=== PATIENT | female | born 1955 | race Caucasian/White ===

== ENCOUNTER 2022-08-19 02:57 | Inpatient (IN) | payer MEDICARE ==
[~2022-08-19] VITALS: Ht 153 cm; Wt 39.6 kg
--- NOTE | 2022-08-19 02:05 | NUR ---
ARRIVAL TO ICU PT ARRIVED AT THIS TIME. SHE IS RECEIVING LEVOPHED 5MCG/MIN AND KETAMINE 1.5MCG/KG/HR. NEURO: PUPILS 2MM, BRISK TO RESPOND TO LIGHT. COUGH/GAG INTACT. EXTREMITIES WTIHDRAW FROM PAINFUL STIMULI. RESP: ETT 6.5/20CM AT LIP WITH VENT SETTINGS AC/VC 18/325/8/90%. LUNGS ARE CLEAR AND DIMINISHED. CARDIAC: NSR ON MONITOR WITH RATE 88-92. LEVOPHED INFUSING TO MAINTAIN MAP >65. FAINT RADIAL PULSES, DOPPLER PEDAL PULSES. 1+ EDEMA TO RLE. HANDS, ANKLES/FEET DUSKY AND COOL. MOTTLING NOTED TO BILAT KNEES. GI: ABDOMEN DISTENDED, FIRM, BOWEL TONES HYPOACTIVE. OGT CONNECTED TO LOW INT SUCTION WITH BROWN OUTPUT. : WILD PRESENT UPON ADMISSION. CHANGED WILD, YELLOW OUTPUT IN TUBING DRAINING TO GRAVITY. SKIN: OVERALL ECCYMOTIC, DRY, COOL TO TOUCH. DR ARIAS AND DR RAMSEY AT BEDSIDE. PLAN FOR CHEST XRAY.
--- NOTE | 2022-08-19 03:00 | NUR ---
UPDATE CHEST XRAY DONE. ETT ADVANCED TO 24CM BY ARTIS CHUA PER DR RAMSEY. OGT ADVANCED.
[2022-08-19 03:29] LABS: PCO2 Arterial 53.4 mmHg (35-45); PO2 Arterial 67.8 mmHg (80-100); pH Blood Arterial 7.29 (7.35-7.45)
[2022-08-19 03:49] LABS: Hemoglobin 13.7 g/dL (11.5-16.0); Mean Corpuscular HGB 34.1 pg (26.0-34.0); Mean Corpuscular HGB Conc 32.6 g/dL (31.5-36.5); Mean Corpuscular Volume 105 fL (80-100); Mean Platelet Volume 9.8 fL (9.1-12.4); Platelet Count 220 K/mm3 (150-400); RDW Coefficient Variation 12.8 % (11.7-14.2); RDW Standard Deviation 49.3 fL (35.1-46.3); Red Blood Cell Count 4.02 M/mm3 (3.80-5.20)
[2022-08-19 03:58] LABS: White Blood Cell Count 8.67 K/mm3 (4.00-11.30)
--- NOTE | 2022-08-19 04:00 | NUR ---
UPDATE LEVOPHED INFUSING AT 3MCG/MIN. KETAMINE DISCONTINUED AND VERSED INITIATED AT 2MG/HR. LR 100ML/HR.
[2022-08-19 04:06] LABS: International Normalized Ratio 1.45; Prothrombin Time Results 14.9 Sec (9.7-11.5)
[2022-08-19 04:21] LABS: Magnesium, Blood 1.8 mg/dL (1.6-2.4); Phosphorus, Blood 3.3 mg/dL (2.5-4.9)
[2022-08-19 04:54] LABS: Source, Urine Foley catheter
[2022-08-19 05:03] LABS: Albumin, Blood 2.2 g/dL (3.4-5.0); Albumin/Globulin Ratio 0.8 (0.8-1.8); Bilirubin, Total 0.7 mg/dL (0.1-1.0); Bun/Creatinine Ratio 38.9 (12.0-20.0); Calcium, Blood 6.7 mg/dL (8.5-10.1); Creatinine, Blood 0.95 mg/dL (0.40-1.00); Globulin, Blood 2.8 g/dL (2.2-4.0); Potassium, Blood 4.8 mmol/L (3.5-5.5)
[2022-08-19 05:32] LABS: BAND PERCENT MAN 7 % (0-8); BASOPHILS PERCENT MAN 0 % (0-2); EOSINOPHILS PERCENT MAN 0 % (0-6); LYMPHOCYTES ABSOLUTE MAN 0.34 K/mm3 (0.84-5.20); LYMPHOCYTES PERCENT MAN 4 % (21-46); MONOCYTES ABSOLUTE MAN 0.17 K/mm3 (0.16-1.47); MONOCYTES PERCENT MAN 2 % (4-13); NEUTROPHILS ABSOLUTE MAN 8.14 K/mm3 (1.96-9.15); SEG NEUTROPHILS PERCENT MAN 87 % (41-73); TOTAL CELLS COUNTED 100
[2022-08-19 05:43] LABS: Blood, Urine 4+ (Neg); Glucose Qualitative, Urine Neg (Neg); Ketones, Urine Neg (Neg); Leukocyte Esterase, Urine 1+ (Neg); Nitrite, Urine Neg (Neg); Protein, Urine 3+ (Neg); Urobilinogen, Urine 2+ (Normal)
[2022-08-19 05:50] LABS: Bilirubin, Urine 1+ (Neg)
[2022-08-19 05:51] LABS: Appearance, Urine Hazy (Clear); Color, Urine Yellow (P-Yellow)
[2022-08-19 06:09] LABS: U Amphetamine Screen Not Detected; U Barbituate Screen Not Detected; U Benzodiazapine Screen Not Detected; U Buprenorphine Screen Not Detected; U Cannabinoids Screen Not Detected; U Cocaine Screen Not Detected; U Methadone Screen Not Detected; U Methamphetamine Screen Not Detected; U Opiates Screen Not Detected; U Oxycodone Screen DETECTED; U Phencyclidine Screen Not Detected; U Propoxyphene Screen Not Detected
--- NOTE | 2022-08-19 06:30 | NUR ---
SHIFT SUMMARY PT REMAINS INTUBATED WITH VENT SETTINGS AC/VC 15/325/8/90%. SHE IS RECEIVING LEVOPHED 6MCG/MIN, VERSED 1MG/HR, AND LR 100ML/HR. COUGH/GAG INTACT. RESPONSIVE TO PAINFUL STIMULI. OCCASIONAL NYSTAGMUS AND UPWARD GAZE. LUNGS ARE CLEAR AND DIMINISHED. SINUS RHTYHM ON MONITOR WITH RATE IN 80S-90S. FAINT RADIAL PULSES, DOPPLER PEDAL PULSES. OGT TO LOW INT SUCTION WITH MINIMAL BROWN OUTPUT. ABDOMEN DISTENDED, FIRM. BOWEL TONES HYPOACTIVE. WILD PATENT AND DRAINING TO GRAVITY WTIH OUTPUT 150ML YELLOW URINE. SKIN OVERALL FRAGILE, DRY AND COOL. REDDENED AREA/ABRASION ON SPINE. PHOTO IN CHART. TEMP 97.7. FINGERS DUSKY, ANKLES AND FEET PURPLE/BLUE AND COOL. BLOOD GLUCOSE 48, GIVEN D50 AND GLUCOSE INCREASED TO 86.
[2022-08-19 06:59] LABS: Adenovirus Not Detected (NOT DETECT); Coronavirus 229E Not Detected (NOT DETECT)
[2022-08-19 07:00] LABS: Bordetella pertussis Not Detected (NOT DETECT); Chlamydophila pneumoniae Not Detected (NOT DETECT); Coronavirus HKU1 Not Detected (NOT DETECT); Coronavirus NL63 Not Detected (NOT DETECT); Coronavirus OC43 Not Detected (NOT DETECT); Human Metapneumovirus Not Detected (NOT DETECT); Human Rhinovirus/Enterovirus Not Detected (NOT DETECT); Influenza A/2009-H1 Not Detected (NOT DETECT); Influenza A/H1 Not Detected (NOT DETECT); Influenza A/H3 Not Detected (NOT DETECT); Influenza B Not Detected (NOT DETECT); Mycoplasma pneumoniae Not Detected (NOT DETECT); Parainfluenza Virus 1 Not Detected (NOT DETECT); Parainfluenza Virus 2 Not Detected (NOT DETECT); Parainfluenza Virus 3 Not Detected (NOT DETECT); Parainfluenza Virus 4 Not Detected (NOT DETECT); Respiratory Syncytial Virus Not Detected (NOT DETECT); SARS-Cov-2 (COVID-19), BioFire Not Detected (NOT DETECT)
--- NOTE | 2022-08-19 08:00 | NUR ---
PT UNRESPONSIVE. VERSED DRIP @ 1MG/HR OFF X 30 MINUTES AND NO CHANGE IN RESPONSIVENESS. PUPILS ARE 1MM AND FIXED. MINIMAL GRIMACE TO PAINFUL STIMULI, BUT NO MOVEMENT OF EXTREMITIES. NO GAG, COUGH, OR CORNEAL REFLEX NOTED. ECG SHOWS SR WITH RATE 80'S. MAP TRENDING >65 ON LEVOPHED @ 4 MCG/MIN. JVD NOTED. EXTREMITIES ARE COOL AND MOTTLED. LOWER EXTREMITIES MOTTLED FROM THE KNEES DOWN. BOTH FEET ARE PURPLE AND PULSES ABSENT EVEN PER DOPPLER. ECHO ORDERED THIS AM. LUNGS DIMINISHED IN THE BASES. SATS 100% ON FIO2 90%-FIO2 DECREASED TO 60%. VENT: AC/VC 15, TV 325, PEEP 8. MODERATE AMOUNT OF CLEAR ETT SECRETIONS. OGT WITH COFFEE GROUND LIKE DRAINAGE. LOVENOX HELD. ABDOMEN IS DISTENDED AND FIRM WITH HYPOACTIVE BT'S X 4. SKIN APPEARS SLIGHTLY JAUNDICED OVERALL. COCCYX SLIGHTLY RED, BUT BLANCHES. NO NOTED BREAKDOWN. PT BACK WITH KYPHOSIS AND A 12+ INCH SCAR TO HER BACK NOTED. WILD TO BSD WITH SMALL AMOUNT OF MARIS URINE TO UROMETER. ANTICIPATE PICC LINE PLACEMENT LATER TODAY IF UNABLE TO TITRATE LEVOPHED OFF. LEVOPHED CURRENTLY INFUSING VIA RIGHT UPPER ARM # 18 GUAGE IV. NO SIGNS OF INFILTRATION. ANTICIPATE POSSIBLE CT OF HEAD LATER TODAY WELL.
[2022-08-19 08:07] LABS: CPK Creatine Kinase 163 U/L (26-193); Glucose, Blood 130 mg/dL (70-99)
--- NOTE | 2022-08-19 09:00 | NUR ---
MAP TRENDING LESS THAN 65-LEVOPHED TITRATED UP TO 5 MCG/MIN. PT TERRY WATTERS UPDATED TO CURRENT STATUS AND PLAN OF CARE. CONSENT FOR PICC LINE PLACEMENT OBTAINED.
--- NOTE | 2022-08-19 10:00 | NUR ---
DR. KIRKPATRICK HERE TO SEE PT. FULL UPDATE GIVEN. PEEP DECREASED TO 5 AND FIO2 DOWN TO 40% SATS >90% PUPILS REMAIN PINPOINT. VERSED DRIP OFF AND NARCAN TO BE GIVEN IF PT DOES NOT BECOME MORE RESPONSIVE. ECHO COMPLETE. US OF ABDOMEN TO BE ORDERED. DIURETICS TO BE GIVEN-SEE EMAR.
--- NOTE | 2022-08-19 12:00 | NUR ---
PT FAMILY AT BEDSIDE. DR. KIRKPATRICK GAVE THEM A FULL UPDATE AND DISCUSSED PLAN OF CARE. PT GIVEN NARCAN 0.4 MG IVP X 1 WITH INCREASED RESPONSIVENESS. SHE WAS THEN GIVEN FLUMAZENIL 0.4 MG IVP X 1 AND SHE STARTED MOVING HER EXTREMITIES AND PULLING ON RESTRAINTS. PT GIVEN A SECOND DOSE OF NARCAN 0.4 MG IVP X 1 AND PT OPENED HER EYES-PUPILS 5 MM AND YOUNG. PT NODS APPROPRIATELY. PT GRIMACING AND FIDGETY. PT NODS "YES" TO BOTH PAIN AND SOB. HR 90-100'S. SR TO ST. SBP 160'S-LEVOPHED DRIP OFF. MIDODRINE HELD. JVD CONTINUES. FIRST DOSE OF LASIX 20 MG IVP X 1 GIVEN AND URINE OUTPUT IMPROVED AND URINE NOW YELLOW. RR 28. DR. KIRKPATRICK ATTEMPTED TO PLACE PT ON PS, BUT TV 150-200'S. SATS >90% VENT RETURNED TO AC/VC+ MODE.OGT WITH BROWN, LIQUID DRAINAGE-NO COFFEE GROUND LIKE DRAINAGE NOTED AT THIS TIME. CBG 54. PT GIVEN 1 AMP OF D50 IVP X 1. WILL RE-CHECK CBG HOURLY UNTIL STABLE. PT FAMILY STATES THAT PT IS NOT DIABETIC. PT ABDOMEN REMAINS DISTENDED AND FIRM WITH HYPOACTIVE BT'S. LOWER EXTREMITIES REMAIN MOTTLLED, BUT LESS SO THAN AM ASSESSMENT.
--- NOTE | 2022-08-19 12:20 | NUR ---
PT PLACED ON PS 20/5 -FIO2 40%. SATS >90% RR 20'S.
--- NOTE | 2022-08-19 13:33 | NUR ---
PT DAUGHTER REPORTS INCREASED AGITATION AND MINIMAL IMPROVMENT IN PAIN SINCE MEDICATED WITH FENTANYL. DR. KIRKPATRICK MADE AWARE. PREDEDEX DRIP INITIATED @ 0.4 MGG/KG/MIN.
--- NOTE | 2022-08-19 14:15 | NUR ---
PT CONTINUES TO NOD "YES" WHEN ASKED IF SHE IS IN PAIN. PT DAUGHTER STATES THAT SHE FEELS THAT PT HAS BEEN RESTING "BETTER" SINCE PRECEDEX STARTED. PT GRIMACING AND PULLING ON RESTRAINTS. PRECEDEX DRIP TITRATED UP TO 0.6 MCG/KG/MIN AND PT MED WITH FENTANYL 25 MCG IVP X 1. SATS>90% ON PS 20/5-FIO2 40%. HR 80'S SR. SBP 100'S AND MAP 84.
--- NOTE | 2022-08-19 14:32 | NUR ---
Spiritual Care Visit. Pt. is intubated and mostly non repsonsive. Daughter is present and welcmoes my visit. Focus of the visist was faciktating a life review and building rapport with the family. Daughter displayed evidence of engagement and interest in supporting her mother. Nurse team came to administer some medications, fo this clearance rep ended the visit. Daughter verbalized gratitude for the spiritual care visit, and welcomed my return.
--- NOTE | 2022-08-19 16:00 | NUR ---
PT RESTING QUIETLY ON VENT WITH PRECEDEX @ 0.6 MCG/KG/MIN. PT PRE-MED WITH FENTANYL 50 MCG IVP X 1-THEN TRANSPORTED TO CTA OF THE CHEST. PT TOLERATED WELL. CONTINUES SR WITH RATE 80'S. MAP >65 WITH LEVOPHED @ 3 MCG/MIN. MIDODRINE HAS BEEN GIVEN VIA OGT. PT CONTINUES ON PS 20/5-FIO2 40%-SATS>90% RR 20'S. PT TO REMAIN ON PS OVERNIGHT TOLERATED. BC X [address] BENITEZ SPOKE WITH DR. KIRKPATRICK REGARDING ECHO RESULTS. JOCY TO BE DONE 08/20/22 AND PT TO BEGIN IV ANTIBIOTICS UNTIL ENDOCARDITIS IS RULED OUT. DR. KIRKPATRICK HAS UPDATED PT FAMILY THROUGH OUT THE DAY.
--- NOTE | 2022-08-19 17:20 | NUR ---
CBG 54-DR. KIRKPATRICK AWARE. D10 DRIP ORDERED-SEE EMAR.
--- NOTE | 2022-08-19 18:24 | NUR ---
PT RESTING QUIETLY ON VENT PS 20/5. PRECEDEX @ 0.4 MCG/KG/MIN. MAP >65 ON LEVOPHED @ 2 MCG/MIN. PM DOSE OF MIDODRINE GIVEN VIA OGT-SEE EMAR. D10 INFUSING AT 50 CC/HR-LAST CBG 59. CONTINUE ACCU CHECK EVERY 1-2 HOURS UNTIL STABLE. URINE OUTPUT 1425 THIS SHIFT.
--- NOTE | 2022-08-19 19:00 | NUR ---
ASSUMPTION OF CARE PT REMAINS INTUBATED WITH VENT SETTINGS PS 20/5/40%. RR 14-20, TV 420-470. SHE IS RECEIVING LEVOPHED 2MCG/MIN, PRECEDEX 0.4MCG/KG/HR, AND D10 50ML/HR. WILD PATENT AND DRAINING TO GRAVITY. SEE SHIFT ASSESSMENT.
--- NOTE | 2022-08-19 23:45 | NUR ---
UPDATE/SEDATION VACATION RC HAS BEEN ON STANDBY SINCE 1914. PT OPENS EYES TO VERBAL STIMULI AND TRACKS MOVEMENTS. SHE IS UNABLE TO ANSWER QUESTIONS BY NODDING/SHAKING HEAD AND UNABLE TO FOLLOW COMMANDS INCLUDING SQUEEZING HANDS AND WIGGLING TOES. UPPER AND LOWER EXTREMITIES WITHDRAW FROM PAINFUL STIMULI. PUPILS 3MM, EQUAL AND REACTIVE TO LIGHT. WEAK COUGH/GAG INTACT. PT TOLERATING VENT WITHOUT SEDATION WELL. SHE REMAINS ON PS 17/5/30%. RR 14-20 WITH TV 300S-420S. PT APPEARS CALM AND COMFORTABLE. GLUCOSE REMAINS LOW IN 60S-70S. DR OCAMPO NOTIFIED, ORDER RECEIVED TO INCREASE D10 TO 100ML/HR AND CONTINUE WITH Q2HR CBG CHECKS.
[2022-08-20 03:42] LABS: Iron Serum 22 ug/dL (50-170); Percent Saturation 6.9 % (15.0-50.0); Total Iron Binding Capacity 319 ug/dL (250-450)
[2022-08-20 03:58] LABS: Ferritin, Serum 1311 ng/mL (8-252); Vancomycin, Random 34.5 ug/mL
--- NOTE | 2022-08-20 05:53 | NUR ---
SHIFT SUMMARY PT RECEIVING D10 100ML/HR AND NS TKO. PRECEDEX ON STANDBY AT 1915, LEVOPHED ON STANDBY AT 0120. PT MORE ALERT THAN EARLIER IN THE SHIFT. PT OPENS EYES TO VERBAL STIMULI, ANSWERS QUESTIONS BY NODDING/SHAKING HEAD, AND FOLLOWS COMMANDS INCLUDING SQUEEZING HANDS AND WIGGLING TOES. PT SHAKES HEAD "NO" WHEN ASKED IF SHE IS IN PAIN/DISCOMFORT OR IF SHE IS FEELING ANXIOUS. PUPILS 3MM, EQUAL AND REACTIVE. COUGH/GAG INTACT. SHE REMAINS INTUBATED WITH VENT SETTINGS PS 15/5/30%. RR 14-22. TV 300S-460S. LUNGS ARE CLEAR AND DIMINISHED THROUGHOUT WITH MINIMAL ETT SECRETIONS. BP CURRENTLY STABLE WITH MAP OF 87. STRONG RADIAL PULSES, DOPPLER PEDAL PULSES. SINUS RHTYHM ON MONITOR WITH RATE 60S-70S. CAP REFILL >3SEC. OGT CONNECTED TO LOW INT SUCTION WITH SMALL AMOUNT OF BROWN OUTPUT. ABDOMEN DISTENDED, BOWEL TONES HYPOACTIVE. WILD PATENT AND DRAINING YELLOW URINE TO GRAVITY WITH SHIFT OUTPUT 400ML. PT REMAINS COOL TO TOUCH. RECTAL TEMP PROBE PLACED WITH READING OF 96.7. MULTIPLE WARM BLANKETS PLACED ON PT. FINGER REMAIN DUSKY. BILAT UPPER EXTREMITIES EDEMATOUS AND WEEPING SEROUS FLUID. BP CUFF MOVED TO R LEG. BILAT ANKLES AND FEET DARK PURPLE/BLUE. CONTINUING BLOOD GLUCOSE CHECKS Q2HRS.
[2022-08-20 08:17] LABS: BASOPHILS ABSOLUTE AUTO 0.03 K/mm3 (0.00-0.23); BASOPHILS PERCENT AUTO 0 % (0-2); EOSINOPHILS PERCENT AUTO 0 % (0-6); Hematocrit 34.3 % (33.0-51.0); Hemoglobin 12.1 g/dL (11.5-16.0); IMMATURE GRAN ABSOLUTE AUTO 0.08 K/mm3 (0.00-0.10); IMMATURE GRAN PERCENT AUTO 1 % (0-1); LYMPHOCYTES PERCENT AUTO 6 % (21-46); MONOCYTES PERCENT AUTO 2 % (4-13); Mean Corpuscular HGB 34.4 pg (26.0-34.0); Mean Corpuscular HGB Conc 35.3 g/dL (31.5-36.5); NEUTROPHILS PERCENT AUTO 92 % (41-73); RDW Coefficient Variation 13.2 % (11.7-14.2); RDW Standard Deviation 47.2 fL (35.1-46.3); Red Blood Cell Count 3.52 M/mm3 (3.80-5.20); White Blood Cell Count 14.41 K/mm3 (4.00-11.30)
[2022-08-20 08:27] LABS: Mean Corpuscular Volume 97 fL (80-100); Mean Platelet Volume 10.5 fL (9.1-12.4); Platelet Count 133 K/mm3 (150-400)
--- NOTE | 2022-08-20 08:31 | NUR ---
AM NOTE... ASSUMED CARE OF PT AT 0700 THE PT IS INTUBATED AND CURRENTLY NOT ON SEDATION. THE PT IS ABLE TO NOD HER HEAD APPROPRIATELY TO QUESTIONS AND FOLLOWS DIRECTIONS SUCH "SQUEEZE MY HANDS, WRIGGLE YOUR TOES." THE PT IS ON SPONTAINIOUS PRESSURE SUPORT 15/5 AND 30% WITH O2 SATS >90%. L/S CLEAR AND DIM T/O. RR IS 14-16. ET TUBE IS 6.5 AND 24 AT THE GUMS. SHE IS IN SR IN THE 60'S-70'S SBP IS IN THE 130'S. MAPS >70. THE PT HAS WHEEPING EDEMA NOTED TO HER BUE AND 1+ PITTING EDEMA NOTED TO HER BLE. BT PRESENT AND HYPOACTIVE, ABD IS FIRM TO PALPATION. OG TUBE IS SET TO LIS WITH NO DRAINAGE NOTED AT THIS TIME. D10 RUNNING AT 100MLS/HR PER ORDERS. THE PT'S WILD IS PATENT AND DRAINING TO GRAVITY. WILL CONTINUE TO MONITOR.
[2022-08-20 08:34] LABS: Bun/Creatinine Ratio 44.9 (12.0-20.0); Calcium, Blood 6.1 mg/dL (8.5-10.1); Creatinine, Blood 0.69 mg/dL (0.40-1.00); Potassium, Blood 3.5 mmol/L (3.5-5.5)
--- NOTE | 2022-08-20 15:24 | NUR ---
PT UPDATE.... THE PT WAS EXTUBATED TO 2L NC WITH O2 SATS >90% AT 1510.
--- NOTE | 2022-08-20 16:57 | NUR ---
SHIFT SUMMARY.... THE PT WAS EXTUBATED TO 2L NC AT 1510 THIS SHIFT. THE PT HAS TOLERATED THIS WELL. THE PT'S VS HAVE BEEN STABLE T/O THIS SHIFT AND SHE HAS BEEN OFF LEVOPHED ALL OF THIS SHIFT. THE PT'S WILD IS PATENT AND DRAINING DARK YELLOW URINE TO GRAVITY. THE PT HAS NOT HAD A BM THIS SHIFT. D10 RUNNING AT 50MLS/HR PER ORDERS WITH Q2 HR CHECKS. WILL CONTINUE TO MONITOR UNTIL REPORT IS GIVEN TO ONCOMING RN.
--- NOTE | 2022-08-20 22:24 | NUR ---
ASSUMED CARE PT A/O TO SELF AND STATES SHE IS IN THE HOSPITAL. DOES NOT KNOW TOWN/MONTH/YEAR. FOLLOWS DIRECTIONS. MOVES ALL EXTREMITIES SPONTANEOUSLY. LUNG SOUNDS CLEAR/DIM. ON 2L NC. SPO2 GREATER THAN 90%. SR, RATE 60'S. SBP 120'S. DENIES CHEST PAIN. ABD FIRM, DISTENDED AND TENDER. MORE ON LEFT THAN RIGHT. PT C/O PAIN IN ABD. MEDICATED PER EMAR. EXTREMITIES EDEMATOUS AND WEEPING. DRSG CHANGED ON LEFT ARM. WILD PATENT AND DRAINING TO GRAVITY.
[2022-08-21 03:33] LABS: BASOPHILS ABSOLUTE AUTO 0.02 K/mm3 (0.00-0.23); BASOPHILS PERCENT AUTO 0 % (0-2); EOSINOPHILS PERCENT AUTO 0 % (0-6); Hematocrit 36.7 % (33.0-51.0); IMMATURE GRAN ABSOLUTE AUTO 0.12 K/mm3 (0.00-0.10); IMMATURE GRAN PERCENT AUTO 1 % (0-1); LYMPHOCYTES ABSOLUTE AUTO 0.72 K/mm3 (0.84-5.20); LYMPHOCYTES PERCENT AUTO 5 % (21-46); MONOCYTES PERCENT AUTO 2 % (4-13); Mean Corpuscular HGB 34.2 pg (26.0-34.0); Mean Corpuscular HGB Conc 35.4 g/dL (31.5-36.5); Mean Corpuscular Volume 97 fL (80-100); Mean Platelet Volume 10.3 fL (9.1-12.4); NEUTROPHILS PERCENT AUTO 93 % (41-73); Platelet Count 104 K/mm3 (150-400); RDW Coefficient Variation 13.2 % (11.7-14.2); RDW Standard Deviation 47.4 fL (35.1-46.3); White Blood Cell Count 15.46 K/mm3 (4.00-11.30)
[2022-08-21 03:55] LABS: Albumin, Blood 2.1 g/dL (3.4-5.0); Albumin/Globulin Ratio 0.7 (0.8-1.8); Alk Phos 81 U/L (50-136); Anion Gap 6 mmol/L (6-16); Aspartate Aminotrans (AST/SGOT 363 U/L (12-37); Bilirubin, Direct 0.1 mg/dL (0.0-0.3); Bilirubin, Indirect 0.3 mg/dL (0.1-0.7); Bilirubin, Total 0.4 mg/dL (0.1-1.0); Blood Urea Nitrogen 28 mg/dL (8-24); Bun/Creatinine Ratio 42.7 (12.0-20.0); CO2, Blood 27 mmol/L (21-32); Chloride, Blood 98 mmol/L (98-108); Creatinine, Blood 0.66 mg/dL (0.40-1.00); Glomerular Filtration Rate 96 (60-); Glucose, Blood 132 mg/dL (70-99); Phosphorus, Blood 2.5 mg/dL (2.5-4.9); Potassium, Blood 3.5 mmol/L (3.5-5.5); Sodium, Blood 131 mmol/L (136-145); Total Protein, Blood 5.1 g/dL (6.4-8.2); Vancomycin, Random 5.2 ug/mL
[2022-08-21 03:59] LABS: Alanine Aminotransfer (ALT/SGP 1145 U/L (12-78)
[2022-08-21 04:00] LABS: Calcium, Blood 8.2 mg/dL (8.5-10.1)
--- NOTE | 2022-08-21 06:00 | NUR ---
SHIFT SUMMARY NO ACUTE EVENTS T/O NIGHT. PT AWAKENS W/ VERBAL STIMULI. CALLS OUT FOR HELP AT TIMES. MEDICATED FOR PAIN IN ABD X 2. ABD REMAINS FIRM AND DISTENDED. HYPOTHERMIC TO 96.3F, CHRISSY HUGGER APPLIED. TEMP NOW 97.3. OTHER VSS. ON 4L NC, SPO2 GREATER THAN 90%. D10 AT 50ML/HR. CBGS 111-139. WILD PATENT AND DRAINING TO GRAVITY. WILL REPORT OFF TO ONCOMING NURSE.
--- NOTE | 2022-08-21 07:45 | NUR ---
Received report from Irish SANCHEZ. Patient is drowsy and is able to communicate her needs. She is alert to self but not place. She is on 4L O2 via NC and sats >90%. Her temp was 97.[address] She has 14Fr patel draining to gravity small amounts of yellow urine. She has 18ga PowerGlide to ALVARO and is infusing D10 at 50 ml/hr and NS TKO. She also has 20 ga IV to EVE flushed and SL. She has 3+ weeping edema with dressing in place to LUE and 2-3+ edema to RUE. She is very slow to move extremities. She denies wanting any oral intake and will talk with Dr fernandez for alternative for PO meds.
--- NOTE | 2022-08-21 09:13 | NUR ---
MICROBIOLOGY RESULTS MICROBIOLOGY RESULTS FROM URINE CULTURE AT [facility] RECEIVED VIA FAX. REPORT SHOWS 20,000 CFU/ML E. COLI WHICH IS SUSCEPTIBLE TO THE ROCEPHIN THE PT IS CURRENTLY PRESCRIBED. REPORT GIVEN TO DR. MCKEON.
--- NOTE | 2022-08-21 09:30 | NUR ---
Dr Rick has been in room and had 30 minute conversation with patient and awaiting new orders. Will c hange to q4hr cbg and make PCU status. Patient will need PICC before transfering to PCU. Chlorhexadine bath given with linen and gown change. She remains on 4L O2 via NC and sats >90%. She went for CT abdomen and tolerated well.
--- NOTE | 2022-08-21 11:17 | NUR ---
Dr Vargas by to assess patient and wants patel pulled and asked patient if she feels that she can tell us before she goes. ALVARO PowerGlide pulled and PICC placed in ALVARO. D10 continues at 50ml/hr, NS TKO and 4L O2 via NC and sats >90%. Will call and give report to PCU 15.
--- NOTE | 2022-08-21 12:17 | NUR ---
Patient transferred to PCU 15 with all belongings. Her teeth were set on counter and nurse notified. reveiwed gtt's with nursea nd meds that will be due. Patient tolerated well. Family at bedside while transferring.
--- NOTE | 2022-08-21 18:24 | NUR ---
SHIFT SUMMARY THE PT ARRIVED TO PCU FROM ICU AT APPROX 1130. PT WAS SLID BY 3 STAFF FROM ICU BED TO PCU BED. PT ALERT AND ORIENTED X3, OCCASIONALLY FORGETFUL. SP02>905 ON 3L NC. TELEMETRY SHOWS NSR, HR MOSTLY 80'S, VSS. BUE WEEPING, GAUZE REAPPLIED. WILD REMOVED IN ICU. PT ABLE TO VOID IN BEDPAN, CALL WHEN NEED TO USE. NO BM THIS SHIFT. NURSING BEDSIDE SWALLOW COMPLETED BY THIS RN. PT ABLE TO SWALLOW WATER W/ NO OBVIOUS SIGNS OF ASPIRATION. PT NOT ABLE TO LIFT CUP TO MOUTH, SO NEEDING ASSISTANCE W/ INTAKE. PT EAGER TO START HAVING A DIET. PT REPOSITIONED FREQUENTLY. FAMILY IN ROOM MOST OF SHIFT. DAUGHTER, NUMBER ON HWHITE BOARD, WOULD LIKE A CALL FROM W/ UPDATE OF PLAN OF CARE/WHAT TO EXPECT AT DISCHARGE. CALL LIGHT IN REACH.
[2022-08-22 03:53] LABS: BASOPHILS ABSOLUTE AUTO 0.01 K/mm3 (0.00-0.23); BASOPHILS PERCENT AUTO 0 % (0-2); EOSINOPHILS ABSOLUTE AUTO 0.01 K/mm3 (0.00-0.68); EOSINOPHILS PERCENT AUTO 0 % (0-6); Hematocrit 36.7 % (33.0-51.0); IMMATURE GRAN ABSOLUTE AUTO 0.22 K/mm3 (0.00-0.10); IMMATURE GRAN PERCENT AUTO 2 % (0-1); LYMPHOCYTES PERCENT AUTO 5 % (21-46); MONOCYTES ABSOLUTE AUTO 0.32 K/mm3 (0.16-1.47); MONOCYTES PERCENT AUTO 2 % (4-13); Mean Corpuscular HGB 34.4 pg (26.0-34.0); Mean Corpuscular HGB Conc 35.4 g/dL (31.5-36.5); Mean Corpuscular Volume 97 fL (80-100); Mean Platelet Volume 10.6 fL (9.1-12.4); NEUTROPHILS ABSOLUTE AUTO 11.83 K/mm3 (1.96-9.15); NEUTROPHILS PERCENT AUTO 90 % (41-73); Platelet Count 59 K/mm3 (150-400); RDW Coefficient Variation 13.3 % (11.7-14.2); RDW Standard Deviation 47.9 fL (35.1-46.3); Red Blood Cell Count 3.78 M/mm3 (3.80-5.20); White Blood Cell Count 13.09 K/mm3 (4.00-11.30)
[2022-08-22 04:07] LABS: Albumin, Blood 2.2 g/dL (3.4-5.0); Anion Gap 3 mmol/L (6-16); Blood Urea Nitrogen 19 mg/dL (8-24); CO2, Blood 30 mmol/L (21-32); Calcium, Blood 8.4 mg/dL (8.5-10.1); Chloride, Blood 97 mmol/L (98-108); Creatinine, Blood 0.59 mg/dL (0.40-1.00); Glomerular Filtration Rate 99 (60-); Glucose, Blood 95 mg/dL (70-99); Phosphorus, Blood 2.9 mg/dL (2.5-4.9); Potassium, Blood 3.7 mmol/L (3.5-5.5); Sodium, Blood 130 mmol/L (136-145)
--- NOTE | 2022-08-22 06:37 | NUR ---
EVE GRIMALDO DC'D, ALVARO PICC REDRESSED, IT WAS SATURATED WITH SEROUS FLUID, VSS
--- NOTE | 2022-08-22 11:34 | NUR ---
Pt resting in bed and is A&OX4. Pt reports mild pain in lower back. Offered therapeutic listening as Pt reports living in [place]. Has a son who lives in [place], a daughter that lives in [place], and several sibblings scattered in various areas of the [place]. Engaged in therapeutic discussion regarding advanced care planning. Discussed the importance of planning for the future and educated on disease process. Discussed the importance routine conversations with PCP and adhearing to recommendations. Offered therapeutic listening and answered questions. Spoke with Primary RN Kera and discussed case. Palliative Care will remain available.
[2022-08-22 11:52] LABS: Free Thyroxine 0.84 ng/dL (0.70-1.60)
[2022-08-22 11:54] LABS: Thyroid Stimulating Hormone 2.59 uIU/mL (0.360-4.800)
--- NOTE | 2022-08-23 05:16 | NUR ---
VSS, ADEQUATE UO, PAIN CONTROLLED WITH PO MEDS, PT REQUIRES CONSTANT VERBAL CUES TO MOVE AND DO WHAT SHE CAN FOR HERSELF, NO ISSUES OVERNIGHT
[2022-08-23 07:28] LABS: BASOPHILS ABSOLUTE AUTO 0.01 K/mm3 (0.00-0.23); BASOPHILS PERCENT AUTO 0 % (0-2); EOSINOPHILS PERCENT AUTO 0 % (0-6); Hematocrit 37.9 % (33.0-51.0); Hemoglobin 13.2 g/dL (11.5-16.0); IMMATURE GRAN ABSOLUTE AUTO 0.03 K/mm3 (0.00-0.10); IMMATURE GRAN PERCENT AUTO 0 % (0-1); LYMPHOCYTES ABSOLUTE AUTO 0.57 K/mm3 (0.84-5.20); LYMPHOCYTES PERCENT AUTO 5 % (21-46); MONOCYTES ABSOLUTE AUTO 0.46 K/mm3 (0.16-1.47); MONOCYTES PERCENT AUTO 4 % (4-13); Mean Corpuscular HGB 33.8 pg (26.0-34.0); Mean Corpuscular HGB Conc 34.8 g/dL (31.5-36.5); Mean Corpuscular Volume 97 fL (80-100); Mean Platelet Volume 11.1 fL (9.1-12.4); NEUTROPHILS ABSOLUTE AUTO 9.43 K/mm3 (1.96-9.15); NEUTROPHILS PERCENT AUTO 90 % (41-73); Platelet Count 51 K/mm3 (150-400); RDW Coefficient Variation 13.2 % (11.7-14.2); RDW Standard Deviation 47.3 fL (35.1-46.3); Red Blood Cell Count 3.91 M/mm3 (3.80-5.20)
[2022-08-23 07:40] LABS: Albumin, Blood 2.3 g/dL (3.4-5.0); Albumin/Globulin Ratio 0.7 (0.8-1.8); Bilirubin, Total 0.5 mg/dL (0.1-1.0); Bun/Creatinine Ratio 30.5 (12.0-20.0); Calcium, Blood 8.7 mg/dL (8.5-10.1); Creatinine, Blood 0.62 mg/dL (0.40-1.00); Globulin, Blood 3.1 g/dL (2.2-4.0); Magnesium, Blood 1.7 mg/dL (1.6-2.4); Phosphorus, Blood 2.9 mg/dL (2.5-4.9); Potassium, Blood 3.7 mmol/L (3.5-5.5); Total Protein, Blood 5.4 g/dL (6.4-8.2)
[2022-08-23 10:08] LABS: HBSAG SCREEN Negative (Negative); HCV AB <0.1 (0.0-0.9); HEP A AB, IGM Negative (Negative); HEP B CORE AB, IGM Negative (Negative)
--- NOTE | 2022-08-23 17:49 | NUR ---
SHIFT SUMMARY PT A/O X4 AND PLEASANT. APPETITE HAS IMPROVED AND PT WAS ABLE TO WORK WITH PHYSICAL THERAPY THIS SHIFT. PT IS STILL QUITE WEAK AND REQUIRES A MODERATE ASSIST IN ORDER TO STAND AT THE SIDE OF THE BED. WEEPING EDEMA TO UPPER ARMS AND PICC LINE DRESSING CHANGED. VSS. PLAN TO DC TO SNF IN [place]. TRANSFERRED TO MEDICAL FLOOR AND REPORT GIVEN TO MEDICAL FLOOR RN.
--- NOTE | 2022-08-24 04:02 | NUR ---
SHIFT SUMMARY NOC PT A/O X 4 PLEASANT AND COOPERATIVE TO CARE. PT HAS WEEPING EDEMA BUE WITH PAPER CHUCKS BENEATH FRO FLUID. PT PICC LINE IS IN ALVARO AND FLUSHES EASILY. PT DC PLAN IS TO GO TO SNF IN [place]. PT IS CURRENTLY RESTING IN BED WITH BED IN LOWEST POSITION AND CALL LIGHT WITHIN REACH. WCTM.
[2022-08-24 04:10] LABS: COMPLEMENT C3, SERUM 79 mg/dL (82-167)
[2022-08-24 04:46] LABS: BASOPHILS ABSOLUTE AUTO 0.01 K/mm3 (0.00-0.23); BASOPHILS PERCENT AUTO 0 % (0-2); EOSINOPHILS ABSOLUTE AUTO 0.01 K/mm3 (0.00-0.68); EOSINOPHILS PERCENT AUTO 0 % (0-6); Hematocrit 35.5 % (33.0-51.0); Hemoglobin 12.5 g/dL (11.5-16.0); IMMATURE GRAN ABSOLUTE AUTO 0.03 K/mm3 (0.00-0.10); IMMATURE GRAN PERCENT AUTO 0 % (0-1); LYMPHOCYTES ABSOLUTE AUTO 0.57 K/mm3 (0.84-5.20); LYMPHOCYTES PERCENT AUTO 5 % (21-46); MONOCYTES ABSOLUTE AUTO 0.66 K/mm3 (0.16-1.47); MONOCYTES PERCENT AUTO 6 % (4-13); Mean Corpuscular HGB 34.2 pg (26.0-34.0); Mean Corpuscular HGB Conc 35.2 g/dL (31.5-36.5); Mean Corpuscular Volume 97 fL (80-100); Mean Platelet Volume 11.1 fL (9.1-12.4); NEUTROPHILS PERCENT AUTO 88 % (41-73); Platelet Count 68 K/mm3 (150-400); RDW Coefficient Variation 13.2 % (11.7-14.2); RDW Standard Deviation 47.1 fL (35.1-46.3); Red Blood Cell Count 3.66 M/mm3 (3.80-5.20); White Blood Cell Count 10.48 K/mm3 (4.00-11.30)
[2022-08-24 05:11] LABS: Bun/Creatinine Ratio 31.1 (12.0-20.0); Calcium, Blood 8.3 mg/dL (8.5-10.1); Creatinine, Blood 0.51 mg/dL (0.40-1.00); Potassium, Blood 3.6 mmol/L (3.5-5.5)
[2022-08-24 10:10] LABS: B. HENSELAE IGG Negative titer (Neg:<1:320); B. HENSELAE IGM Negative titer (Neg:<1:100); B. QUINTANA IGG Negative titer (Neg:<1:320); B. QUINTANA IGM Negative titer (Neg:<1:100)
--- NOTE | 2022-08-24 17:18 | NUR ---
SHIFT SUMMARY PT UP TO RECLINER CHAIR THIS MORNING AND UP UNTIL AFTER LUNCH. REPORTS BEING PRETTY TIRED NOW. MEDICATED FOR CHRONIC PAIN Q6 HOURS. 1 PERSON ASSIST USING FWW. BSC USED FOR VOIDING SINCE SEEN BY Quinn ARMS CONTINUE TO WEEP.
--- NOTE | 2022-08-25 03:56 | NUR ---
SHIFT SUMMARY ADMITTED FOR ACUTE ENCEPHALOPATHY. FULL CODE. FOUND TO HAVE AORTIC VALVE VEGETATION. 6 WEEKS OF IV ANTIB RX AT A FACILITY IS THE PLAN. PICC LINE IN RUE. ACHS PRN S/SX OF HYPOGLYCEMIA. MECHANICAL SOFT DIET. BUE WEEPING EDEMA. CALLS FREQUENTLY FOR SMALL NEEDS. 1 ASSIST W/FWW - BSC. ON 2 LPM O2 VIA NC. ON RA @ BASELINE. HX OF CHRONIC OPIOID USE. REMOTE HX OF ETOH. DM1 IS REPORTEDLY DIET CONTROLLED.
--- NOTE | 2022-08-25 09:52 | NUR ---
Spiritual Care Visit. Pt. is awake and sitting in a recliner when she welcomes my visit. Pt. displays evidence of significant improvement since this structured cabling technician visited her in ICU. Pt. is pleasant and displays evidence of awareness and engagement in her recovery plan. Through theratupic listening rapport is established. Prayed with Pt. Pt. verbalized gratitude for the spiritual care visit.
[2022-08-25] MEDS ORDERED: Nicoderm Cq1 EAC1 TOP (11:35)
[2022-08-25] MEDS ORDERED: CEFTRIAXON1 GM/50 M1 (11:35)
[2022-08-25] MEDS ORDERED: SPIR25 PO ×2 (11:37→11:38)
[2022-08-25] MEDS ORDERED: OXYC5 PO (11:37)
[2022-08-25 11:38] LABS: SARS-Cov-2 (COVID-19) PCR, MMC NEGATIVE (NEGATIVE)
[2022-08-25 13:11] LABS: Q FEVER PHASE II 1:16 (Neg:<1:16)
--- NOTE | 2022-08-25 16:28 | NUR ---
SHIFT SUMMARY PT AWAKE DURING SHIFT REPORT. UP TO CHAIR AT BS FOR BREAKFAST. 1P ASSIST USING FWW. UP TO BSC TO VOID AND HAVE BM. PT LATER UP TO SHOWER WITH ALBERT MILNER. DR LUGO IN TO SEE PT AND DISCUSS PLAN OF CARE. PT TO D/C TO [facility] FOR CONTINUED IV ABX. PICC LINE IN PLACE; ALVARO. IRON INFUSION GIVEN PRIOR TO D/C. LAST DOSE D/C'D AT [facility] PER DR LUGO. TX SET UP TO TAKE PT OVER. ALL BELONGINGS GATHERED BY PT AND TAKEN WITH PT. REPORT CALLED TO HAZEL SANCHEZ.
[2022-08-25 19:06] LABS: ANTI-DSDNA ANTIBODIES <1 IU/mL (0-9); RNP ANTIBODIES 0.7 AI (0.0-0.9); SJOGREN'S ANTI-SS-A <0.2 AI (0.0-0.9); SJOGREN'S ANTI-SS-B <0.2 AI (0.0-0.9); SMITH ANTIBODIES <0.2 AI (0.0-0.9)
== END 2022-08-25 14:56 | DRG 917 ==
LOC: MEDS 02:57 → ICUW 02:57 → PCU 08-21 12:02 → MEDS 08-23 17:33
PROVIDERS: Family Medicine; Internal Medicine; Internal Medicine Critical Care Medicine; ADMIT Internal Medicine
PROC: 3E033XZ Introduction of Vasopressor into Peripheral Vein, Percutaneous Approach (ICD-10-PCS; principal; 2022-08-19)
PROC: 5A1945Z Respiratory Ventilation, 24-96 Consecutive Hours (ICD-10-PCS; 2022-08-19)
PROC: 0BH18EZ Insertion of Endotracheal Airway into Trachea, Via Natural or Artificial Opening Endoscopic (ICD-10-PCS; 2022-08-19)
PROC: 05HY33Z Insertion of Infusion Device into Upper Vein, Percutaneous Approach (ICD-10-PCS; 2022-08-19)
DX: T40.2X1A Poisoning by other opioids, accidental (unintentional), initial encounter (principal); E43 Unspecified severe protein-calorie malnutrition; J96.01 Acute respiratory failure with hypoxia; I33.0 Acute and subacute infective endocarditis; G92.8 Other toxic encephalopathy; J81.0 Acute pulmonary edema; R64 Cachexia; E87.20 Acidosis, unspecified; E87.1 Hypo-osmolality and hyponatremia; F11.20 Opioid dependence, uncomplicated; J96.12 Chronic respiratory failure with hypercapnia; Z68.1 Body mass index [BMI] 19.9 or less, adult; Z51.5 Encounter for palliative care; E10.9 Type 1 diabetes mellitus without complications; J44.9 Chronic obstructive pulmonary disease, unspecified; K74.60 Unspecified cirrhosis of liver; G89.29 Other chronic pain; F32.9 Major depressive disorder, single episode, unspecified; E87.5 Hyperkalemia; K72.90 Hepatic failure, unspecified without coma; D69.6 Thrombocytopenia, unspecified; D50.9 Iron deficiency anemia, unspecified; X58.XXXA Exposure to other specified factors, initial encounter
CPT/HCPCS: 0202U; 36415; 36600; 51703; 71045; 71275; 74177; 80048; 80053; 80069; 80074; 80202; 82140; 82248; 82550; 82728; 82803; 82947; 83540; 83550; 83605; 83735; 83880; 84100; 84439; 84443; 84484; 85025; 85610; 86141; 86160; 86225; 86235; 86381; 86611; 86638; 87040; 87077; 87086; 87186; 93306; 94002; 94003; 94760; 94762; 97110; 97162; 97530; A9270; C1751; C9113; J0610; J0696; J1940; J2250; J2310; J2916; J3010; J3370; J3411; J7040; J7050; J7060; J7120; J7799; P9047; Q9967; U0004